=== PATIENT | female | born 1985 | race Two or more races ===

== ENCOUNTER → 2018-04-22 | Emergency (ER) | payer OTHER ==
[~2018-04-22] VITALS: Ht 154.9 cm; Wt 63.5 kg
[2018-04-22 04:17] VITALS: BP 142/72
== END | disposition home or self-care (01) ==
LOC: ER 04:17
DX: S16.1XXA Strain of muscle, fascia and tendon at neck level, initial encounter (principal); S20.212A Contusion of left front wall of thorax, initial encounter; S00.81XA Abrasion of other part of head, initial encounter; F10.129 Alcohol abuse with intoxication, unspecified; Z60.2 Problems related to living alone; V49.49XA Driver injured in collision with other motor vehicles in traffic accident, initial encounter; Y93.89 Activity, other specified; Y92.413 State road as the place of occurrence of the external cause; Y99.8 Other external cause status
CPT/HCPCS: 36415; 70450; 72040; 72074; 84703; 99285; A4606; Z7610

== ENCOUNTER 2021-02-10 21:40 | Emergency (ER) | payer SELFPAY ==
[~2021-02-10] VITALS: Ht 154.9 cm; Wt 79.4 kg
--- NOTE | 2021-02-10 21:46 | NUR ---
PT AAOX4. BIBRA 839 C/O R ANKLE PAIN S/P TRIP AND FALL AT [facility]. PLACED IN BED 9 ON MONITOR AND PULSE OX. AWAITING ER MD FOR EVL AND ORDERS.
--- NOTE | 2021-02-10 22:26 | NUR ---
TRACY SIGNED CONSENT FORM.
--- NOTE | 2021-02-10 22:27 | NUR ---
rt ac 20g initiated
[2021-02-10] MEDS ORDERED: MORPHINE SULFATE INJ 2 MG/ML DISP.SYRIN IV ONE (22:30)
[2021-02-10] MEDS ORDERED: MORPHINE SULFATE INJ 4 MG/ML DISP.SYRIN ONE (22:32)
[2021-02-10] MEDS ORDERED: ONDANSETRON HCL/PF 4 MG/2 ML VIAL ONE (22:32)
--- NOTE | 2021-02-10 22:41 | NUR ---
CALLED [facility] AND PAGED DR CORCORAN PER CHARMAINE LUCAS'Sanjay ORDER
[2021-02-10] MEDS ORDERED: ONDANSETRON HCL/PF 4 MG/2 ML VIAL IV ONE (23:00)
[2021-02-10] MEDS ORDERED: HYDR-4303 PO (23:15)
[2021-02-10] MEDS ORDERED: IBUP-1955 PO (23:15)
--- NOTE | 2021-02-10 23:45 | NUR ---
X RAY AT BEDSIDE
[2021-02-10] MEDS ORDERED: HYDROCODONE/APAP 5/325MG TABLET ONE (23:46)
[2021-02-11] MEDS ORDERED: HYDROCODONE/APAP 5/325MG TABLET PO ONE
[2021-02-11 00:33] VITALS: BP 106/68
--- NOTE | 2021-02-11 00:33 | NUR ---
Patient discharged to home in stable condition. Written and verbal after care instructions given. Patient verbalizes understanding of instruction. Crutches dispensed. Pt instructed on proper use of crutches. Patient able to demonstrate correct use of crutches.
== END 2021-02-11 00:33 | disposition home or self-care (01) ==
LOC: ER 21:45
DX: S82.841A Displaced bimalleolar fracture of right lower leg, initial encounter for closed fracture (principal); Z60.2 Problems related to living alone; Z79.899 Other long term (current) drug therapy; W01.0XXA Fall on same level from slipping, tripping and stumbling without subsequent striking against object, initial encounter; Y93.89 Activity, other specified; Y92.511 Restaurant or cafe as the place of occurrence of the external cause; Y99.8 Other external cause status
CPT/HCPCS: 27810; 73560; 73590; 73610 ×3; 96374; 96375; 99284; J2270; J2405